=== PATIENT | male | born 1980 | race Caucasian/White ===

== ENCOUNTER 2018-04-20 08:28 | Emergency (ER) | payer MEDICAID ==
[2018-04-20 09:25] VITALS: BP 129/54
--- NOTE | 2018-04-20 10:27 | EDM.PDOC ---
ED HPI GENERAL MEDICAL PROBLEM - General Chief Complaint: Syncope Stated Complaint: DIZZY / FALL Time Seen by Provider: 04/20/18 09:30 Source of Information: Reports: Patient, Family History Limitations: Reports: No Limitations - History of Present Illness INITIAL COMMENTS - FREE TEXT/NARRATIVE: 37-year-old male with chronic recurring vertigo and dizziness problems developed another episode this morning that was very intense. He became diaphoretic and pale and felt like he was going to faint. He is feeling a little better now, he also has persistent hand and toe numbness which is intermittent since he's been working for the last several months. No fevers or chills, no headache, no shortness of breath, no nausea or vomiting. Onset: Sudden (Symptoms developed suddenly an hour and a half ago, although they have been recurring and chronic) Severity: Moderate Associated Symptoms: Reports: Diaphoresis, Nausea/Vomiting, Other (Paresthesias of the hands and feet). Denies: Shortness of Breath - Related Data Allergies Allergy/AdvReac Type Severity Reaction Status Date / Time amoxicillin [Amoxicillin] Allergy Swelling Verified 04/20/18 09:25 Penicillins Allergy Swollen Verified 04/20/18 09:25 Eyes Home Meds: Home Meds NK [No Known Home Meds] 04/20/18 [History] Past Medical History Musculoskeletal History: Reports: Arthritis Neurological History: Reports: Vertigo Psychiatric History: Reports: Anxiety, Depression Dermatologic History: Reports: Psoriasis - Past Surgical History Neurological Surgical History: Reports: Lumbar Spine Other Neurological Surgeries/Procedures: 2008 Social & Family History - Tobacco Use Smoking Status *Q: Current Every Day Smoker Years of Tobacco use: 21 Packs/Tins Daily: 0.7 - Caffeine Use Caffeine Use: Reports: Coffee - Recreational Drug Use Recreational Drug Use: No ED ROS GENERAL - Review of Systems Review Of Systems: See Below Constitutional: Denies: Fever, Chills HEENT: Reports: Other (He's had some persistent left ear pressure or pain over the past couple of months) Respiratory: Denies: Shortness of Breath Cardiovascular: Reports: No Symptoms. Denies: Chest Pain GI/Abdominal: Denies: Abdominal Pain, Nausea, Vomiting : Reports: No Symptoms Neurological: Reports: Paresthesia (Hands and feet, persistent recurring dizziness) ED EXAM, NEURO - Physical Exam Exam: See Below Exam Limited By: No Limitations General Appearance: Alert, No Apparent Distress Eye Exam: Bilateral Eye: Normal Inspection (No nystagmus) Ears: Normal TMs Throat/Mouth: Normal Inspection Head Exam: Atraumatic Respiratory/Chest: No Respiratory Distress, Lungs Clear Cardiovascular: Regular Rate, Rhythm GI/Abdominal: Soft, Non-Tender Neurological: Alert, Normal Mood/Affect, No Motor/Sensory Deficits Extremities: Normal Inspection. No: Pedal Edema Psychiatric: Normal Affect, Normal Mood Skin Exam: Warm, Dry Course - Vital Signs Last Recorded V/S: Last Vital Signs Temp 97.2 F 04/20/18 09:23 Pulse 54 L 04/20/18 09:23 Resp 17 04/20/18 09:23 BP 129/54 L 04/20/18 09:23 Pulse Ox 97 04/20/18 09:23 - Orders/Labs/Meds Labs: Laboratory Tests 04/20/18 04/20/18 Range/Units 10:00 10:00 WBC 5.8 (4.5-11.0) K/uL RBC 5.40 (4.30-5.90) M/uL Hgb 15.7 H (12.0-15.0) g/dL Hct 44.7 (40.0-54.0) % MCV 83 (80-98) fL MCH 29 (27-31) pg MCHC 35 (32-36) % Plt Count 188 (150-400) K/uL Neut % (Auto) 54 (36-66) % Lymph % (Auto) 33 (24-44) % [place] % (Auto) 9 H (2-6) % Eos % (Auto) 4 (2-4) % Baso % (Auto) 0 (0-1) % ESR 0 (0-20) mm/hr Sodium 141 (140-148) mmol/L Potassium 4.0 (3.6-5.2) mmol/L Chloride 105 (100-108) mmol/L Carbon Dioxide 27 (21-32) mmol/L Anion Gap 9.2 (5.0-14.0) mmol/L BUN 20 H (7-18) mg/dL Creatinine 1.2 (0.8-1.3) mg/dL Est Cr Clr Drug Dosing 88.02 mL/min Estimated GFR (MDRD) > 60 (>60) Glucose 99 (74-106) mg/dL Calcium 8.6 (8.5-10.1) mg/dL Total Bilirubin 0.4 (0.2-1.0) mg/dL AST 24 (15-37) U/L ALT 59 (12-78) U/L Alkaline Phosphatase 69 (46-116) U/L Total Protein 6.9 (6.4-8.2) g/dL Albumin 3.6 (3.4-5.0) g/dL Globulin 3.3 (2.3-3.5) g/dL Albumin/Globulin Ratio 1.1 L (1.2-2.2) - Re-Assessments/Exams Free Text/Narrative Re-Assessment/Exam: 04/20/18 10:26 I think this patient needs neurology consult with his ongoing symptoms but we can give him some reassurance with a CBC, CMP and sedimentation rate today. 04/20/18 10:57 All labs are reassuring, sedimentation rate is 0. Patient was discharged with some meclizine to take as needed and he is going to discuss a neurology consult with his primary care provider in the near future. Departure - Departure Time of Disposition: 11:06 Disposition: Home, Self-Care 01 Condition: Good Clinical Impression: Vertigo, Paresthesias - Discharge Information Instructions: Vertigo, [id number] Referrals: Yousuf Hammond MD [Primary Care Provider] - Forms: ED Department Discharge Care Plan Goals: Use meclizine as directed, increase activity as tolerated. Consider discussing a neurology consultation with your primary provider in the next 1-2 weeks.
== END 2018-04-20 11:06 | disposition home or self-care (01) ==
LOC: JP.ED 08:28
DX: R42 Dizziness and giddiness (principal); R20.2 Paresthesia of skin; F17.210 Nicotine dependence, cigarettes, uncomplicated; Z88.0 Allergy status to penicillin; Z88.1 Allergy status to other antibiotic agents
CPT/HCPCS: 36415; 80053; 85025; 85651; 99284

== ENCOUNTER 2021-12-25 05:02 | Emergency (ER) | payer MEDICAID ==
[2021-12-25 05:08] VITALS: BP 142/83; PULSE 91
[2021-12-25] MEDS ORDERED: Sodium Chloride 0.9% 10 ML Syringe FLUSH PRN ×2 (05:35)
== END 2021-12-25 07:18 | disposition home or self-care (01) ==
LOC: JP.ED 05:02
DX: K59.04 Chronic idiopathic constipation (principal); Z88.0 Allergy status to penicillin
CPT/HCPCS: 36415; 71045; 71045-26; 74176; 80053; 81001; 83605; 83690; 85025; 99285-25